=== PATIENT | female | born 1975 | race Caucasian/White ===

== ENCOUNTER → 2017-06-08 | Outpatient (CLI) | payer SELFPAY ==
--- NOTE | 2017-06-08 14:26 | Discharge Instructions ---
Discharge Instructions Procedure Procedure Date: Jun 08, 2017. Reason for visit: Left Masses. Discharge Discharge Date: Jun 08, 2017. Discharge Diagnosis: status post breast biopsy Instructions Activity Recommendations: Additional Limitations (see below) Return to School/Work: no limitations Recommended Home Diet: No Limitations Provider Instructions: ACTIVITY RECOMMENDATIONS: * No lifting, pushing, pulling or exercising the affected side for three days. RETURN TO SCHOOL/WORK: * You may return to work/school after the procedure, but do not perform any strenuous activities for 24 to 48 hours. MEDICATIONS: * Tylenol (two 325 mg) every four to six hours if needed for mild pain (if not allergic to Tylenol). DIET: * Resume previous diet. SPECIAL CARE INSTRUCTIONS: * Keep biopsy site dry for 24 hours. May shower after 24 hours, but do not soak (bathe) incision. * May remove Tegaderm (plastic patch) tomorrow AFTER showering. * Leave the steri-strips on for one week. Allow the steri-strips to fall off by themselves. If not off after one week, you may remove them. You may place a Bandaid crosswise over the strips, if desired. * Apply ice 10 minutes on and 10 minutes off as needed. * Wear a bra at bedtime to sleep more comfortably for 2-3 days. * Your referring physician should have the results after approximately 5 to 7 business days. * Call for unusual bleeding, fever, drainage, etc or if you have any questions call during normal business hours or after hours call Dr Quezada, [phone]. FOLLOW UP VISIT: Follow-up with Referring Physician as scheduled. Allergies Coded Allergies: No Known Allergies (Verified Allergy, Unknown, 04/02/04) Tyler Dunaway Recommendations: Call your doctor if: * Temperature above 101 degrees * Pain not relieved by pain medicine ordered * There is increased drainage or redness from any incision * You have any unanswered questions or concerns. Your Doctors Instructions noted above were prepared by provider Haven Quezada. Patient Signature Section: Patient Instructions Signature Page Cheyenne Blandon Patient (or Guardian) Signature/Date: I have read and understand the instructions given to me by my caregivers. Caregiver/RN/Doctor Signature/Date: The above-named patient and/or guardian has received patient instructions on this date. + Original Patient Signature Page (only) stays with chart. Please make copy for patient.
--- NOTE | 2017-06-11 12:30 | MAMMOGRAPHY REPORT ---
UNILATERAL LEFT DIGITAL DIAGNOSTIC MAMMOGRAM TOMOSYNTHESIS: 06/08/2017 CLINICAL HISTORY: Status post post left breast ultrasound guided biopsy 2. TECHNIQUE: Breast tomosynthesis in addition to standard 2D mammography was performed. Postprocedura l left CC and ML tomosynthesis images including C views were obtained. COMPARISON: Comparison is made to exams dated: 06/08/2017 ultrasound biopsy, 05/18/2017 ultrasound, and 05/18/2017 mammogram - [facility]. BREAST COMPOSITION: The tissue of the left breast is heterogeneously dense, which may obscure small masses. FINDINGS: A new ribbon-shaped biopsy marker clip is seen at the site of the biopsied left 11:00 breas t mass (mass "A"). A wing-shaped biopsy marker clip is seen more laterally in the breast status post ultrasound-guided biopsy of a left 11:30 breast mass (mass "B"). No significant postbiopsy hematoma is seen. IMPRESSION: POST PROCEDURE IMAGING FOR MARKER PLACEMENT New biopsy marker clips status post ultrasound-guided biopsy of the left breast 2. Pathology result s are pending. Approximately 10% of breast cancers are not detected with mammography. A negative mammographic report should not delay biopsy if a clinically suggestive mass is present. Haven Quezada M.D. /:06/08/2017 14:40:11 Executive Sales Manager: Linda Cooper [facility] BI-RADS Code: Post Procedure Imaging For Marker Placement
--- NOTE | 2017-06-11 12:30 | MAMMOGRAPHY REPORT ---
ULTRASOUND GUIDED BIOPSY LEFT BREAST: 06/08/2017 CLINICAL HISTORY: Left 11 to 11:30 periareolar breast mass. PATIENT CONSENT: The procedure, risks and benefits were discussed with the patient and informed writt en consent was obtained. A timeout was performed immediately prior to the procedure. PROCEDURE DESCRIPTION: With ultrasound guidance, aseptic technique, and lidocaine as the local anesth etic (1% lidocaine to anesthetize the skin and 1% lidocaine with epinephrine to anesthetize the deepe r tissues), the mass of concern in the left 11:30 periareolar breast (mass "B") was sampled 3 times w ith a 14-gauge Achieve biopsy needle. Immediately thereafter, with ultrasound guidance, aseptic tech nique, and lidocaine as the local anesthetic, a metallic localizer clip was placed at the biopsy site . Direct pressure was applied to the site immediately post procedure and hemostasis was achieved. P ostprocedure unilateral mammograms were performed to confirm placement of the clip in the expected lo cation of the breast mass. The patient tolerated the procedure without complication. She was given wound care instructions. The specimens were sent to pathology for analysis. COMPARISON: Comparison is made to exams dated: 06/08/2017 ultrasound biopsy, 05/18/2017 ultrasound, and 05/18/2017 mammogram - [facility]. IMPRESSION: ULTRASOUND GUIDED BIOPSY Ultrasound guided core needle biopsy of the left 11:30 periareolar breast mass (mass "B "), with clip placement. The patient will receive pathology results from her referring provider. Haven Quezada M.D. /:06/08/2017 14:29:53 Sample Collector: Linda Cooper, [facility]
--- NOTE | 2017-06-11 12:30 | MAMMOGRAPHY REPORT ---
ULTRASOUND GUIDED BIOPSY LEFT BREAST: 06/08/2017 CLINICAL HISTORY: Left 11:00 breast mass. PATIENT CONSENT: The procedure, risks and benefits were discussed with the patient and informed writt en consent was obtained. A timeout was performed immediately prior to the procedure. PROCEDURE DESCRIPTION: With ultrasound guidance, aseptic technique, and lidocaine as the local anesth etic (1% lidocaine to anesthetize the skin and 1% lidocaine with epinephrine to anesthetize the deepe r tissues), the mass of concern in the left 11:00 breast, 3 cm from the nipple (labeled mass "A"), wa s sampled 4 times with a 14-gauge Achieve biopsy needle. Immediately thereafter, with ultrasound guid ance, aseptic technique, and lidocaine as the local anesthetic, a metallic localizer clip was placed centrally in the mass. Direct pressure was applied to the site immediately post procedure and hemost asis was achieved. Postprocedure unilateral mammograms were performed to confirm placement of the cl ip in the expected location of the breast mass. The patient tolerated the procedure without complica tion. She was given wound care instructions. The specimens were sent to pathology for analysis. COMPARISON: Comparison is made to exams dated: 05/18/2017 ultrasound and 05/18/2017 mammogram - [facility]. IMPRESSION: ULTRASOUND GUIDED BIOPSY Ultrasound-guided core needle biopsy of the left 11:00 breast mass (mass "A"), with clip placement. The patient will receive pathology results from her referring provider. Haven Quezada M.D. /:06/08/2017 14:28:08 Cafeteria Counter Attendant: Linda Cooper, [facility]
== END | disposition home or self-care (01) ==
LOC: C.MAMM 13:41
PROVIDERS: ATTEND Nurse Practitioner
DX: N63 Unspecified lump in breast (principal); D24.2 Benign neoplasm of left breast; N60.12 Diffuse cystic mastopathy of left breast